=== PATIENT | female | born 1960 | race Caucasian/White ===

== ENCOUNTER 2018-02-05 19:11 | Emergency (ER) | payer BC ==
[~2018-02-05] VITALS: Ht 162.6 cm; Wt 77.3 kg
[2018-02-05 19:15] VITALS: TEMP 97.8
[2018-02-05] MEDS ORDERED: ZYRTEC 10MG10 MG PO (19:23)
[2018-02-05] MEDS ORDERED: TOPROL XL 25MG25 MG PO (19:23)
[2018-02-05] MEDS ORDERED: MULTI VITAMINS1 TAB PO (19:23)
[2018-02-05] MEDS ORDERED: PRAVACHOL 20MG20 MG PO (19:23)
[2018-02-05] MEDS ORDERED: LUTEIN20 M1 PO (19:23)
[2018-02-05] MEDS ORDERED: XALATAN EYE DROPS OU (19:24)
[2018-02-05] MEDS ORDERED: TIMOPTIC 0.25%-10 OU (19:24)
[2018-02-05 20:06] LABS: BASO % 0.3 % (0.0-2.0); EOS # 0.2 (0.0-0.7); EOS % 2.1 % (0-4.0); GRAN # 4.8 (1.4-6.5); GRAN % 63.5 % (42.2-75.2); HEMATOCRIT 41.2 % (37.0-47.0); HEMOGLOBIN 13.8 g/dl (12.5-16.0); LYMPH # 2.1 (1.2-3.4); MEAN CELL VOLUME 87 fl (80.0-100.0); MEAN CORPUSCULAR HEMOGLOBIN 29 pg (27.0-31.0); MEAN CORPUSCULAR HGB CONC 34 g/dl (33.0-37.0); MEAN PLATELET VOLUME 9.2 fl (7.4-10.4); MONO # 0.4 (0.1-0.6); MONO % 5.7 % (1.7-9.3); PLATELET COUNT 249 K/mm3 (130-400); RED BLOOD COUNT 4.76 M/mm3 (4.10-5.30); REDCELL DISTRIBUTION WIDTH-CV 13.4 % (11.5-14.5)
[2018-02-05 20:20] LABS: ALANINE AMINOTRANSFERASE 50 U/L (9-52); ALBUMIN 4.2 gm/dL (3.5-5.0); ALKALINE PHOSPHATASE 92 U/L (50-136); ANION GAP 12 mmol/L (7-16); AST,SGOT 56 U/L (15-37); BILIRUBIN,TOTAL 0.6 mg/dL (0.0-1.0); BLOOD UREA NITROGEN 14 mg/dL (7-17); CALCIUM 9.5 mg/dL (8.4-10.2); CARBON DIOXIDE 27 mmol/L (22-30); CHLORIDE 101 mmol/L (98-107); CREATININE, serum 0.57 mg/dL (0.52-1.25); GLUCOSE 105 mg/dL (74-106); POTASSIUM 3.4 mmol/L (3.4-5.0); SODIUM 140 mmol/L (137-145); TOTAL PROTEIN 7.9 gm/dL (6.4-8.2)
[2018-02-05 20:34] LABS: TROPONIN-I < 0.012 ng/mL (0.000-0.034)
[2018-02-05 21:12] VITALS: BP 142/83; PULSE 84
== END 2018-02-05 21:12 | disposition home or self-care (01) ==
LOC: COL.ER 19:11
PROVIDERS: Emergency Medicine
DX: R20.0 Anesthesia of skin (principal); Z90.710 Acquired absence of both cervix and uterus; E78.5 Hyperlipidemia, unspecified